=== PATIENT | male | born 1965 ===

== ENCOUNTER 2017-01-03 07:35 | Day surgery (SDC) | payer OTHER ==
[2016-12-30 12:01] VITALS: BMI 35.5
[2017-01-03] MEDS ORDERED: Lactated Ringer's 1,000 ML IV ONE ×2 (08:50→13:00)
[2017-01-03] MEDS ORDERED: SENSORCAINE 0.5% W/EPINEPHRINE 50ML MDV IJ ONE (09:30)
[2017-01-03] MEDS ORDERED: Bupivacaine 0.5% Inj(30mL) ONE (09:31)
[2017-01-03] MEDS ORDERED: Lidocaine 1% Inj (20ml) ONE (09:31)
[2017-01-03] MEDS ORDERED: Lidocaine 2% w Epi 1:100,000 Inj IJ ONE (09:31)
[2017-01-03] MEDS ORDERED: Propofol 10 mg/ml Inj (20 ML) ONE (09:33)
[2017-01-03] MEDS ORDERED: Succinylcholine 200 mg/10 ml Inj IV ONE (09:33)
--- NOTE | 2017-01-03 09:59 | CP.SDSHP ---
Same Day Surgery H & P - History Proposed Procedure: see office note - Allergies Allergies: Allergies No Known Allergies Allergy (Verified 01/03/17 09:28) - Physical Exam Vital Signs: Vital Signs 01/03/17 09:18 Temperature 98 F Pulse Rate 90 Respiratory 20 Rate Blood Pressure 146/86 O2 Sat by Pulse 96 Oximetry - {Optional Preform as Required} Other Pertinent Findings: [place] [employer] patient report reviewed, no recent CDS on record. Patient counseled on the risks of addiction, physical or psychological dependence, and overdose associated with opioid drugs and the danger of taking opioid drugs with alcohol and other central nervous system depressants, and cautioned patient on storage and disposal. - Impression Impression: see office note Pt. Evaluated Today:Candidate for Anesthesia & Procedure: Yes - Date & Time Date: 01/03/17 Time: 13:04 Short Stay Discharge - Short Stay Discharge Admitting Diagnosis/Reason for Visit: M19.131 Disposition: HOME/ ROUTINE Referrals: Yassine Reyes MD [Primary Care Provider] -
[2017-01-03] MEDS ORDERED: Ropivacaine 0.5% 30ML IV ONE (10:02)
[2017-01-03] MEDS ORDERED: Midazolam 2 MG/2 ML VIAL ONE (10:16)
[2017-01-03] MEDS ORDERED: Neostigmine Methylsulfate 2 MG/2 ML ML IV ONE (11:12)
[2017-01-03] MEDS ORDERED: Neostigmine Methylsulfate 3mg/3ml Syringe IV ONE (11:12)
[2017-01-03] MEDS ORDERED: Bupivacaine 0.5% 50 ML IJ ONE ×2 (12:33→12:37)
[2017-01-03] MEDS ORDERED: Oxycodone/Acetaminophen 5/325 mg Tab PO PRN (13:04)
--- NOTE | 2017-01-03 13:25 | PCM.ANESB4 ---
Infraclavicular Block - Femoral Nerve Block Date of Procedure: 01/03/17 Procedure Performed: Brachial Plexus at the Infraclavicular area Right - Procedure Infraclavicular Block: The procedure was explained to the patient that it is for the post-operative pain management. Consent was obtained after a thorough discussion with the patient regarding the benefits and possible complications of local anesthetic block of the brachial plexus at the infraclavicular area. Post-operatively time- out was held with the circulating nurse to confirm the correct surgery and the appropriate block. The patient's head was gently rotated away from the operative ___right shoulder and the area medial to the coracoid process and inferior to the clavicle was carefully palpated. The ultrasound transducer was then applied to the skin in the transverse plane and the brachial plexus was visualized surrounding the axillary artery and deep to the pectoralis major and minor muscles. After thorough identification, this area was prepped with chloroprep solution. At this point, a #21 gauge Stimuplex 4-inch needle was inserted cephalad to the ultrasound transducer and inferior to the clavicle in-plane towards the posterior aspect of the axillary artery. Needle advancement was performed carefully under ultrasound visualization. Nerve stimulator was used and twitch of the affected extremity including fingers, hand, wrist and elbow was obtained at current of ___0.4__MA. After repeated negative aspiration, __5___cc of __0.5% ___% was injected and this was followed with ____15__ cc of ____0.5___ % ropivacaine . Under ultrasound guidance the local anesthetics were observed surrounding the cords of the brachial plexus. The needle was removed intact and sterile dressing was applied. The patient had stable vital signs. The patient tolerated the infraclavicular block of the brachial plexus well with stable vital signs.
[2017-01-03] MEDS ORDERED: HYDROmorphone 0.5 mg/0.5 ml ISec IVP PRN (13:27)
[2017-01-03] MEDS ORDERED: ePHEDrine 50 mg/ml Inj ONE (13:40)
[2017-01-03] MEDS ORDERED: Phenylephrine 10 mg/ml Inj ONE (13:40)
[2017-01-03 13:58] VITALS: RESP 18
[2017-01-03 15:28] VITALS: BP 140/81; PULSE 87; TEMP 97.4; O2SAT 99
--- NOTE | 2017-01-03 16:04 | RAD ---
PROCEDURE: Right Wrist Radiographs. HISTORY: pt in pacu, s/p right wrist fusion COMPARISON: None. FINDINGS: Cast material obscures fine bone and soft-tissue detail. The patient is status post multifocal wrist fusion by numerous K-wires. No definite fracture is grossly appreciable. Lateral view does not demonstrate the distal ulna well-aligned with the carpus. Clinically correlate. SOFT TISSUES: Normal. OTHER FINDINGS: None. IMPRESSION: Status post right carpus fusion by multiple K-wires as discussed above. With gas obscuring fine bony and soft-tissue detail. The alignment of the distal ulna the ulna appears dorsal to its usual position. This may be due to technical rotation of the image, however, clinically correlate further.
--- NOTE | 2017-01-06 18:10 | OP ---
PROCEDURE DATE: 01/03/2017 SURGEON: Jas Chavez MD. ASSISTANTS: 1. Pawel Robison MD. 2. Maribel GOLD. PREOPERATIVE DIAGNOSES: 1. 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 2. Right wrist synovitis. 3. Right wrist posterior interosseous nerve neuritis. POSTOPERATIVE DIAGNOSES: 1. 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 2. Right wrist synovitis. 3. Right wrist posterior interosseous nerve neuritis. PROCEDURES: 1. Right wrist four-corner arthrodesis with autograft (95546). 2. Right wrist scaphoid corpectomy (56610). 3. Right wrist radial styloidectomy (66757). 4. Right wrist PIN nerve neurectomy and neurolysis (98297). 5. Right wrist arthrotomy with synovectomy (28038). ANESTHESIA: General with postoperative right upper extremity block. SPECIMENS: None. BLOOD LOSS: Minimal. COMPLICATIONS: None. DISPOSITION: Stable to recovery room. 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 The articular surface of the scaphoid as well as the radial facet demonstrated eburnation with severe damage. The capitate with a distal row also had advanced collapse deformity and severe destruction of the articular surface. In contrast, the proximal articular surface of the lunate was still well located in the lunate fossa and demonstrated relatively healthy cartilage with adjacent radius. INDICATION: A 51-year-old male with advanced SLAC wrist, who has failed conservative therapy, elected to undergo the above procedure. Risks included, but not limited to bleeding, infection, tendon, nerve and vessel injury, instability, chronic pain, potential need for additional surgery in the future. Patient understood the above risks and elected to proceed. Informed consent was obtained. DESCRIPTION OF PROCEDURE: The patient was brought into the operating room and placed supine on the operating room table. After successful administration of anesthesia and antibiotics, a well-padded tourniquet was applied to the right upper extremity and the entire right upper extremity was then prepped and draped in a standard surgical fashion and draped into a sterile field. With a sterile marking pen, the proposed incision was outlined. This was a longitudinal incision over the dorsal aspect of the wrist. The arm was then elevated and exsanguinated with an Esmarch bandage. The tourniquet was inflated to 250 mmHg and the Esmarch was removed. An incision was made to the dorsum of the wrist. All superficial veins were cauterized. The skin flaps were sharply elevated. Immediately, attention was directed towards identifying and protecting the sensory branches of the radial and ulnar nerves. These were carefully protected. The retinaculum was exposed and was incised between the third and fourth compartments. The PIN nerve was identified and neurectomy was performed as it was excised in the radial septum of the fourth compartment. The capsular tissues were then identified and a longitudinal incision was made in the dorsal capsule. Arthrotomy was performed and immediate synovitis was identified and synovial fluid was emanating from the joint. Wrist synovectomy was performed with rongeur and dissecting scissors. The scaphoid was identified and was hypoflexed with arthritic changes throughout. A corpectomy of the scaphoid was performed in its entirety and with care taken to preserve the critical radiocarpal ligaments. The rest of the carpal bones were inspected. The lunate was still well localized in the facet of the radius and demonstrated good cartilage. There were, however, significant degenerative changes in the head of the capitate. Thus, a fourl bone fusion was performed. A thorough decortication was performed at the mid carpal joint creating a healthy cancellous fusion bed between the capitate, lunate, triquetrum, and hamate. In addition, the capitate was reduced to lunate where correcting the advanced collapse of the capitate with distal row. While reduction was maintained, a 0.062 Johanna wire was passed from the distal radius through the capitate into the volar aspect of the fusion site and maintaining the reduction and excellent placement of the cancellous surfaces. Partial radial styloidectomy was performed eliminating hypertrophic spurs and preventing impingement. This was fashioned to a smooth surface with a rasp. Care was taken to preserve the origins of the radiocarpal ligaments. The interval between the second and third compartments of the distal radius were identified and the periosteum was incised and the EPL tendon was relocated subcutaneously. Gucci's tubercle was then removed with a rongeur. With the power drill, a trough was created and with a small curette, abundance of cancellous bone graft was precluded from this site. The wound was irrigated and suctioned and the periosteum was reapproximated with 4-0 Vicryl sutures. The cancellous bone was then packed into the fusion site and ensuring an abundance of healthy cancellous bone at the fusion site. Next, the excised scaphoid bone was decorticated to healthy bleeding bone and sized to an appropriate size to be used as an autograft at the fusion site. Once decorticated the scaphoid bone was packed into the fusion site providing a cortical autograft. Two additional 0.062 K-wires were then passed from the distal carpus across the bone graft into the proximal carpus avoiding the radial ulnar joint. This captured the capitate through lunate fixation. Next, 2 more 0.062 Johanna wires were passed from the second base of the metacarpal and into the capitate, hamate , thus re-creating a stable four-corner fusion site. Fluoroscopic images confirmed well reduced and aligned four-corner fusion in both the AP and lateral films. It demonstrated an excellent coaptation of the carpus with maintenance of the radiolunate articulation. The remaining capsular tissue was imbricated and repaired with 4-0 Vicryl sutures. The retinaculum was repaired with 4-0 Vicryl sutures. The tourniquet was deflated and irrigated. Hemostasis was achieved meticulously. The skin wounds were closed with 4-0 nylon interrupted mattress suture. Sterile fluff dressing was used to protect the surgical repairs for further protection and was supported with long armthumb-spica splint. The patient tolerated the procedure well and was returned to recovery room in excellent condition. Dr. Pawel Robison is a board certified orthopedic surgeon and Maribel Priest is a certified physician radiology assistant. Their assistance was required throughout the entirety of the case. They helped with proper patient positioning, reduction of the carpus bones, fixation of the fusion site, and retrieval of the autograft. Jas Chavez MD [employer]
== END 2017-01-03 16:05 | disposition home or self-care (01) ==
LOC: H.OPSURG 07:35
PROVIDERS: ATTEND Orthopaedic Surgery
DX: M19.131 Post-traumatic osteoarthritis, right wrist (principal); M65.9 Synovitis and tenosynovitis, unspecified; M21.831 Other specified acquired deformities of right forearm; G58.8 Other specified mononeuropathies; I10 Essential (primary) hypertension; E11.9 Type 2 diabetes mellitus without complications
CPT/HCPCS: 25105; 25210; 25230; 25810; 64772; 73110; 82948; C1713; C1769; J0330; J0690; J2001; J2250; J2370; J2405; J2704; J2710; J2765; J3010; J7030; J7120